=== PATIENT | female | born 1970 | race Caucasian/White ===

== ENCOUNTER 2023-04-24 10:01 | Emergency (ER) | payer OTHER, SELFPAY ==
[2023-04-24 10:03] VITALS: BP 165/106
--- NOTE | 2023-04-24 12:16 | ED.GENMED ---
History of Present Illness
General
Chief Complaint: Dizziness
Time Seen by Provider: 04/24/23 12:05
Travel History
Have you had any contact with someone who has COVID-19?: No
Do you have any symptoms of coronavirus? Fever > 100 degrees, chills, cough, shortness of breath, sore throat, loss of taste or smell, muscle aches, or headache?: No
History of Present Illness
History of Present Illness:
52-year-old female with history of chronic GERD and hypertension presents to the emergency department for evaluation of intractable positional vertigo for the past 3 months but worsening over the past 3 weeks. She initially took a course of
antibiotics for presumed upper respiratory tract infection by her primary care physician, followed up with outpatient vestibular therapy. She states that her physical therapist has felt that her evaluation is not consistent with crystal mediated
peripheral vertigo. She denies any URI symptoms in the month prior to onset of vertigo. Has no symptoms at rest. Has been able to ambulate without falling but does feel generally unsteady. No night sweats or weight loss.
Past History
Past History
ED Past Medical History: HTN
ED Past Surgical History: Cholecystectomy
Social History
Tobacco: Non-smoker
Personal:
Living: with family
Employment: Employed
Family History
Family History: CAD; Negative Early CAD
Review of Systems
Review of Systems
Allergies reviewed?: Yes
All Other Systems: ROS reviewed and negative except as documented in HPI and ROS
Phy Exam
Physical Exam
Physical Exam:
GEN: Well appearing, NAD, WDWN
HEENT: Oral mucosa moist, no scleral icterus, no nasal congestion
Cardiac: Regular rate
Lung: No respiratory distress, no tachypnea
MSK: No gross deformity or injuries
Skin: Good color, no pallor or jaundice, no rashes
Neuro: AO x3; CN II-XII grossly intact. No obvious nystagmus during periods where patient is noting severe vertigo. BUE strength 5/5 in all spear, sensation intact and symmetric. BLE strength 5/5 in all spear, sensation intact and symmetric
Psych: Calm, cooperative
Course
Orders/Labs/Results
Orders:
Orders
04/24/23 12:18
Electrocardiogram (*1) Urgent
Reason for Study: Vertigo / Dizzy
EKG- Treatment ONCE
04/24/23 12:52
Basic Metabolic Panel Urgent
Complete Blood Count/With Diff Urgent
Abnormal Lab Results
04/24/23
12:52
Absolute Neuts (auto) 6.8 H 10^3/uL
(1.4-6.5)
Neutrophils % 75.4 H %
(42.2-75.2)
Lymphocytes % 19.0 L %
(20.5-51.1)
Glucose 102 H mg/dl
(70-99)
04/24/23 12:52
04/24/23 12:52
Vital Signs
Initial and Last Documented VS:
Initial Vital Signs
Temp Pulse Resp BP Pulse Ox
98.2 F 108 18 165/106 98
04/24/23 10:03 04/24/23 10:03 04/24/23 10:03 04/24/23 10:03 04/24/23 10:03
Last Documented Vital Signs
Temp Pulse Resp BP Pulse Ox
98.2 F 108 18 165/106 98
04/24/23 10:03 04/24/23 10:03 04/24/23 10:03 04/24/23 10:03 04/24/23 10:03
MDM/Problems Addressed
MDM/Problems Addressed:
49-year-old female presenting with intractable positional vertigo for the past 3 months but worsening in 3 weeks. She has no obvious nystagmus on exam and has no other focal neurologic deficits. Certainly could represent a vestibular neuritis
however this would be atypical given lack of preceding viral prodrome and persistence over this long duration. She has no hearing loss or tinnitus to suggest M�ni�re's disease. Could be related to persistent eustachian tube dysfunction in the
setting of chronic GERD. Will trial a course of steroid medication given that meclizine has failed, recommend outpatient ENT follow-up.
*Critical Care Note
Total Time (30-74mins, 75-104mins- exclusive of procedures): Not Applicable
ED Attending Note
-
Portions of this chart may have been created with voice recognition software.� Occasional wrong word or��sound alike� substitutions may have occurred due to the inherent limitations of voice recognition software.
Discharge Plan
Departure
Patient Disposition: Home (Routine Discharge)
Date of Disposition: 04/24/23
Time of Disposition: 13:43
Patient with high blood pressure during this ER visit?: Yes
Discharge Problem:
Vertigo
Instructions: Vertigo (a Type of Dizziness) (DC)
Prescriptions:
New
prednisone 20 mg tablet
60 mg PO DAILY 7 Days Qty: 21 0RF
No Action
amlodipine 5 MG tablet
5 mg PO DAILY
spironolactone 12.5 MG tablet
12.5 mg PO DAILY
ipratropium bromide 1 SPRAY spray,non-aerosol
2 spray intranasal TID
Referrals:
Fozia Steiner CRNP [Family Provider] -
Activity Restrictions/Additional Instructions:
Follow up with your ENT specialist
Do not take NSAIDs (ibuprofen, naproxen, aspirin) while on the steroid medications
If your symptoms persist even at rest, return to the ER
Discuss getting an MRI of your brain/vestibular structures with your primary care physician
Interventions
Interventions:
*Risk Screen - Suicide Last Done: 04/24/23 14:23
*General Assessment Last Done: 04/24/23 14:23
*Neglect/Abuse Screening Last Done: 04/24/23 14:23
*ED COVID-19 Vaccine History Last Done: 04/24/23 10:09
*Nursing Disposition Last Done: 04/24/23 14:23
ED- Neurological Assessment Last Done: 04/24/23 12:52
ED- Cardiac Assessment Last Done: 04/24/23 14:23
Discharge Date and Time
Discharge Date/Time: 04/24/23 14:25
[2023-04-24 13:11] LABS: % Basophils 0.2 % (0-2); % Eosinophils 0.6 % (0-6); % Immature Granulocytes 0.3 % (0-0.5); % Monocytes 4.5 % (1.7-9.3); % Neutrophils 75.4 % (42.2-75.2); Absolute Eosinophils 0.1 10^3/uL (0-0.7); Absolute Lymphocytes 1.7 10^3/uL (1.2-3.4); Absolute Monocytes 0.4 10^3/uL (0.1-0.6); Absolute Neutrophils 6.8 10^3/uL (1.4-6.5); Hematocrit 42.3 % (37.0-47.0); Hemoglobin 14.8 g/dL (12.0-16.0); Mean Corpuscular Hgb 29.6 pg (27.0-31.0); Mean Corpuscular Volume 84.6 fL (81.0-99.0); Mean Platelet Volume 9.3 fL (7.4-10.4); Nucleated Red Blood Cells % 0 %; Platelet Count 295 10^3/uL (130-400); Red Cell Dist. Width 11.8 % (11.5-14.5); White Blood Cell Count 9.1 10^3/uL (4.8-10.8)
[2023-04-24 13:29] LABS: Blood Urea Nitrogen 16 mg/dl (7-17); Carbon Dioxide 26 mmol/L (22-30); Chloride 105 mmol/L (98-107); Glucose 102 mg/dl (70-99); Potassium 4.5 mmol/L (3.5-5.1); Sodium 141 mmol/L (135-145); eGFR > 60.00
== END 2023-04-24 14:25 | disposition home or self-care (01) ==
LOC: EMR 10:01
PROVIDERS: Physician Assistant; EMERGENCY PHYSICIAN Emergency Medicine; FAMILY PHYSICIAN Nurse Practitioner
DX: R42 Dizziness and giddiness (principal); K21.9 Gastro-esophageal reflux disease without esophagitis; I10 Essential (primary) hypertension
CPT/HCPCS: 99284; 80048; 85025; 93005

== ENCOUNTER → 2024-05-28 14:59 | Outpatient (REF) | payer OTHER, SELFPAY | LOC: HWWDC 14:59 | PROVIDERS: ATTENDING PHYSICIAN Nurse Practitioner Adult Health | DX: Z12.31 Encounter for screening mammogram for malignant neoplasm of breast (principal) | CPT/HCPCS: 77063; 77067 ==

== ENCOUNTER → 2024-06-26 15:09 | Outpatient (REF) | payer OTHER, SELFPAY | LOC: DHSLP 15:09 | PROVIDERS: ATTENDING PHYSICIAN Otolaryngology | DX: G47.33 Obstructive sleep apnea (adult) (pediatric) (principal) | CPT/HCPCS: 95806 ==